=== PATIENT | female | born 1980 | race Caucasian/White ===

== ENCOUNTER 2025-08-24 21:41 | Day surgery (SDC) | payer OTHER, SELFPAY ==
[2025-08-24 21:46] VITALS: BP 129/84; PULSE 102; RESP 18; TEMP 37.6; O2SAT 96; BMI 22.6
--- NOTE | 2025-08-24 22:03 | ED_ITS ---
HPI - Fever General Time Seen by Provider: 22:03 Date Seen: 08/24/25 Chief Complaint: Cough Stated Complaint: respiratory virus, fever, abdominal pain Time Seen by Provider: 08/24/25 22:03 Source: patient and family Mode of arrival: ambulatory History of Present Illness HPI Narrative: Veronika is a 44-year-old female with no significant past medical history who presents to the emergency department from home with her for evaluation of fever, cough, and abdominal pain. Patient reports that she has been sick with a upper respiratory infection/cold since last Saturday. Patient reports worsening symptoms with worsening dry cough and [facility]. Patient states that they prescribed her cough medication (Tessalon Perles) and an inhaler. Patient reports no improvement of symptoms and was told to come to the emergency department if develops fever. Patient states that this afternoon around 2:00 p.m. after eating lunch she developed some acid reflux [place] [facility] [place] [facility] with some abdominal pain. Patient reports worsening cough throughout the day, generally feeling unwell, as well as a constant pain in her right lower abdomen that is been worsening throughout the evening. Patient did not eat dinner. Denies any nausea, vomiting, dysuria. No history of prior abdominal surgeries. No medications prior to arrival. No other complaints. Related Data Home Medications ?Medication ?Instructions ?Recorded ?Confirmed benzonatate PO 08/24/25 Allergies Allergy/AdvReac Type Severity Reaction Status Date / Time Penicillins Allergy Verified 08/24/25 21:51 spinach AdvReac Verified 08/24/25 21:51 Review of Systems Narrative Past medical history, past surgical history, medications, allergies, family history, and social history were reviewed with the patient. No additional pertinent items. A medically appropriate review of systems was performed with pertinent positives and negatives noted in HPI, all other systems negative. PFSH PFSH Social History What is your current living situation?: I presently have a place to live Problems where you live: no known problems Problems where you live details: n/a In the past 12 months, utilities in danger of being shut off: no In past 12 months, lack of transportation kept you from medical appts, meetings, work, or getting things needed for daily living: no In the past 12 mos, have been you worried that your food would run out before you had money to buy more?: never true In the past 12 mos, the food you bought just didn't last and you didn't have money to buy more?: never true Smoking Status: Never smoker Do you use any of these nicotine containing products: None Second hand tobacco smoke exposure: No How often do you have a drink containing alcohol: 2-3 times a week How many standard drinks containing alcohol do you have on a typical day: 1 or 2 How often do you have six or more drinks on one occasion: Never AUDIT-C Alcohol total score: 3 Non-prescribed substance use: denies use How often does anyone, including family, friends and others, physically hurt you : never How often does anyone, including family, friends and others, insult or talk down to you: never How often does anyone, including family, friends and others, threaten you with harm: never How often does anyone, including family, friends and others, scream or curse at you: never service: No Exam Narrative Exam Narrative: General: Febrile 99.7, in distress HEENT: Normocephalic, atraumatic, conjunctiva normal. Posterior pharynx with mild erythema, no exudates, no significant swelling, no asymmetry, MMM Neck: non-tender, supple Cardio: regular rate. regular rhythm Resp: Normal work of breathing, no respiratory distress, lungs clear bilaterally, no wheezing, rhonchi, rales Chest/Back: no visual signs of trauma, no midline tenderness, no CVA tenderness Abdomen: soft, non distension, +TTP RLQ with no peritoneal signs Neuro: alert and fully oriented. CN II-XII grossly intact. Grossly normal strength and sensation in all extremities. MSK: no deformities. Normal range of motion Integumentary/Skin: no rash visualized, normal color Psych: normal affect, normal behavior Const Vital Signs, click to edit/add: Vital Signs - 24 hr 08/24/25 21:46 08/25/25 00:24 Temperature 99.7 F H 98.8 F Pulse Rate [Pulse Oximeter] 102 H 83 Respiratory Rate 18 18 Blood Pressure [Right Upper Arm] 129/84 126/78 Pulse Oximetry 96 95 Oxygen Delivery Method Room Air Room Air Course Vital Signs Vital signs: Initial Vital Signs Temperature 99.7 F H 08/24/25 21:46 Temperature Source Temporal Artery Scan 08/24/25 21:46 Pulse Rate 102 H 08/24/25 21:46 Respiratory Rate 18 08/24/25 21:46 Blood Pressure 129/84 08/24/25 21:46 Blood Pressure Mean 99 08/24/25 21:46 Blood Pressure Position Sitting 08/24/25 21:46 Pulse Oximetry 96 08/24/25 21:46 Oxygen Delivery Method Room Air 08/24/25 21:46 Vital Signs Temperature 99.7 F H 08/24/25 21:46 Pulse Rate 102 H 08/24/25 21:46 Respiratory Rate 18 08/24/25 21:46 Blood Pressure 129/84 08/24/25 21:46 Pulse Oximetry 96 08/24/25 21:46 Oxygen Delivery Method Room Air 08/24/25 21:46 Temperature 98.9 F 08/25/25 01:52 Pulse Rate 79 08/25/25 01:52 Respiratory Rate 17 08/25/25 01:52 Blood Pressure 112/72 08/25/25 01:52 Pulse Oximetry 98 08/25/25 01:52 Oxygen Delivery Method Room Air 08/25/25 01:52 Medications Administered Medications: Generic Name Dose Route Start Last Admin Trade Name Freq PRN Reason Stop Dose Admin Guaifenesin/Codeine Phosphate 5 ml 08/25/25 00:45 08/25/25 01:11 Codeine/Guaifenesin 20-200mg/10 Ml Soln PO 5 ml Q4H PRN Administration cough Discontinued Medications Generic Name Dose Route Start Last Admin Trade Name Freq PRN Reason Stop Dose Admin Sodium Chloride 1,000 mls @ 1,000 mls/hr 08/24/25 23:00 08/25/25 00:16 0.9 % Sodium Chloride 1000 Ml IV 08/24/25 23:59 Infused .Q1H ISAI Infusion Ketorolac Tromethamine 15 mg 08/24/25 22:59 08/24/25 23:30 Ketorolac 15 Mg/Ml Inj IVP 08/24/25 23:00 15 mg ONCE ONE Administration Metoclopramide HCl 5 mg 08/24/25 22:59 08/24/25 23:32 Metoclopramide Hcl 5 Mg/Ml Inj IVP 08/24/25 23:00 5 mg ONCE ONE Administration MDM - Fever MDM Narrative Medical decision making narrative: Veronika is a 44-year-old female with no significant past medical history who presents to the emergency department from home with her for evaluation of fever, cough, and abdominal pain. Upon arrival patient is nontoxic appearing, febrile 99.7, in distress. Patient is slightly tachycardic with heart rate 102, blood pressure 129/84, oxygen 96% on room air. Differential diagnosis includes but is not limited to upper respiratory infection versus COVID/influenza/RSV versus strep versus bronchitis versus pneumonia versus pleurisy versus cholecystitis versus acid reflux versus appendicitis versus cystitis versus among others. Upon arrival patient was treated with IV Reglan, Toradol, 1 L IV fluid bolus. Comprehensive labs and viral testing performed. Comprehensive labs remarkable for leukocytosis with white blood cell count of 15.7, neutrophils 75%, no acute metabolic electrolyte abnormality, no transaminitis, normal lipase, negative test, urinalysis with slightly cloudy appearance, trace blood, no evidence of acute infection. Viral testing negative for influenza/COVID/RSV. Negative strep. Given patient's fever, cough, worsening abdominal pain chest x-ray and CT imaging performed. I personally reviewed and interpreted CT of the abdomen and pelvis which demonstrates acute appendicitis with dilated appendix. I personally reviewed interpreted chest x-ray which is unremarkable with no cardiomegaly, no focal infiltrate, pleural effusion, pneumothorax. I discussed patient management with general surgeon Dr. Gupta who recommends surgical management 1st thing in the morning. Will keep patient NPO, maintenance IV fluids, plan to hold off on antibiotics until surgery. I discussed patient management with hospitalist who agrees with observation admission for surgical intervention in the morning. Patient understands and agrees with plan. Medical Records Attestation: I reviewed the patient's medical records. Lab Data Attestation: I reviewed the patient's lab results. Labs: Lab Results 08/24/25 08/24/25 08/24/25 Range/Units 21:53 22:05 22:14 WBC 15.70 H (4.50-11.00) K/uL RBC 4.50 (4.00-5.20) m/uL Hgb 14.0 (12.0-16.0) gm/dL Hct 42.4 (33.0-51.0) % MCV 94 (80-100) fL MCH 31 (26-34) pg MCHC 33 (32-36) gm/dL RDW Coeff of Sami 11.7 (11.5-15.5) % Plt Count 267 (140-440) K/uL Neut % (Auto) 75.0 H (42.0-72.0) % Lymph % (Auto) 14.8 L (20-44) % [place] % (Auto) 8.4 (0.0-11.0) % Eos % (Auto) 1.4 (0.0-7.0) % Baso % (Auto) 0.2 (0.0-3.0) % Neut # (Auto) 11.80 H (1.7-7.0) K/uL Lymph # (Auto) 2.30 (0.90-2.90) K/uL [place] # (Auto) 1.30 H (0.00-0.90) K/UL Eos # (Auto) 0.20 (0.00-0.50) K/uL Baso # (Auto) 0.00 (0.00-0.30) K/uL Abs Immat Gran (auto) 0.00 (0.00-0.30) K/uL Imm/Tot Granulo (auto) 0.2 % Sodium 137 (135-149) mmol/L Potassium 3.8 (3.6-5.1) mmol/L Chloride 95 L (96-114) mmol/L Carbon Dioxide 29 (20-32) mmol/L Anion Gap 13 (7-15) mEq/L BUN 6 (5-24) mg/dL Creatinine 0.7 (0.5-1.5) mg/dL Estimated Creat Clear 99.73 Estimated GFR 109 ml/min Glucose 122 H (60-115) mg/dL Calcium 10.0 (8.4-10.6) mg/dL Total Bilirubin 0.4 (0.1-1.5) mg/dL AST 29 (12-35) U/L ALT 19 (4-35) U/L Alkaline Phosphatase 66 (40-150) U/L Total Protein 8.2 (6.0-8.3) g/dL Albumin 4.8 (3.3-5.0) g/dL Lipase 43 (23-300) U/L HCG, Qual Negative (Negative) Urine Color Yellow (Yellow) Urine Appearance Slightly Cloudy A (Clear) Urine pH 6.0 (5.0-8.5) Ur Specific [place] 1.015 (1.000-1.030) Urine Protein Negative (Negative) Urine Glucose (UA) Negative (Negative) Urine Ketones Negative (Negative) Urine Blood Trace-intact A (Negative) Urine Nitrite Negative (Negative) Urine Bilirubin Negative (Negative) Urine Urobilinogen 0.2 (0.2-1.0) Ur Leukocyte Esterase Negative (Negative) Urine RBC 0-2 (0-2) Urine WBC 0-2 (0-5) Ur Squamous Epith Cells Few (None-Few) Urine Bacteria Moderate A (None) SARS-CoV-2 (PCR) Negative SARS-CoV-2 (Negative) Influenza Type A (PCR) Negative PCR FLU A (Negative) Influenza Type B (PCR) Negative PCR FLU B (Negative) RSV (PCR) Negative PCR RSV (Negative) Group A Strep DNA NOT DETECTED (Not Detectd) Imaging Data CT scan - abdomen: Attestation: I have reviewed the pertinent imaging results. Radiologist's impression: INDICATION: Right lower quadrant abdominal pain, fever. TECHNIQUE: CT abdomen and pelvis acquired with 70 cc Isovue 370 IV contrast. COMPARISON: None. FINDINGS: Lower chest: Right lower lobe calcified granuloma. Partially visualized bilateral breast implants. Liver: Low-density lesions in the left hepatic lobe, indeterminate. These could be further characterize with MRI abdomen on an outpatient basis if clinically warranted. Few calcified granulomas. Gallbladder and bile ducts: Unremarkable. No stones or inflammation. No biliary ductal dilatation. Spleen: Normal in size. Few calcified granulomas. Adrenal glands: Unremarkable. No nodules. Pancreas: Unremarkable. No mass or inflammation. Kidneys: Subcentimeter hypodense foci are too small to accurately characterize. No stones or hydronephrosis. GI tract: Dilated appendix measuring 8 mm with wall hyperenhancement. Minimal adjacent fat stranding. GI tract is normal in caliber. No evidence of obstruction. Lymph nodes: No lymphadenopathy. Vasculature: Unremarkable. Omentum/Peritoneum/Abdominal Wall: Unremarkable. No free air or significant free fluid. Pelvis: Left adnexal corpus luteum. IUD in place. Bones: Unremarkable for age. IMPRESSION: Acute appendicitis. Please note that all CT scans at this facility use dose modulation, iterative reconstruction, and/or weight-based dosing when appropriate to reduce radiation dose to as low as reasonably achievable. Chest x-ray: Attestation: I have reviewed the pertinent imaging results. Radiologist's impression: INDICATION: Cough and fever. TECHNIQUE: Chest 2 views. COMPARISON: None. FINDINGS: Cardiovascular and mediastinum: Cardiomediastinal silhouette is within normal limits. Lungs and pleural spaces: Right lower lobe calcified granuloma. No consolidation. No pleural effusions or pneumothorax. Bones and soft tissues: No significant findings. IMPRESSION: No evidence of acute pulmonary process. Dictated by Brennan Burroughs MD @ 08/24/2025 11:45:17 PM Discharge Plan Discharge Clinical Impression: Acute appendicitis, Cough Patient Disposition: Admitted As Observation
[2025-08-24 22:17] LABS: Appearance Urine Slightly Cloudy (Clear)
[2025-08-24 22:20] LABS: Hematocrit* 42.4 % (33.0-51.0); Hemoglobin* 14.0 gm/dL (12.0-16.0); Immature Granulocytes Abs Auto 0.00 K/uL (0.00-0.30); Immature Granulocytes Pct Auto 0.2 %; Lymphocytes Absolute Auto 2.30 K/uL (0.90-2.90); Mean Corpuscular HGB Conc 33 gm/dL (32-36); Mean Corpuscular Hemoglobin 31 pg (26-34); Mean Corpuscular Volume 94 fL (80-100); RDW Coefficient of Variation % 11.7 % (11.5-15.5); Red Blood Count* 4.50 m/uL (4.00-5.20); Slide Review Reflex No; White Blood Count* 15.70 K/uL (4.50-11.00)
[2025-08-24 22:31] LABS: Albumin* 4.8 g/dL (3.3-5.0); Chloride* 95 mmol/L (96-114)
[2025-08-24 22:32] LABS: Potassium* 3.8 mmol/L (3.6-5.1); Sodium* 137 mmol/L (135-149)
[2025-08-24 22:34] LABS: Alanine Aminotransferase* 19 U/L (4-35); Aspartate Amino Transferase* 29 U/L (12-35); Blood Urea Nitrogen* 6 mg/dL (5-24); Creatinine* 0.7 mg/dL (0.5-1.5); Est. Creatinine Clearance* 99.73; Estimated Glomerular Filt Rate 109 ml/min
[2025-08-24 22:35] LABS: Alkaline Phosphatase* 66 U/L (40-150); Anion Gap 13 mEq/L (7-15); Bilirubin Total* 0.4 mg/dL (0.1-1.5); Calcium* 10.0 mg/dL (8.4-10.6); Carbon Dioxide* 29 mmol/L (20-32); Glucose* 122 mg/dL (60-115); Total Protein* 8.2 g/dL (6.0-8.3)
[2025-08-24 22:38] LABS: PCR FLU A Negative PCR FLU A (Negative); PCR FLU B Negative PCR FLU B (Negative); PCR RSV Negative PCR RSV (Negative); SARS PCR* Negative SARS-CoV-2 (Negative)
[2025-08-24 22:42] LABS: Strep A DNA Probe* NOT DETECTED (Not Detectd)
[2025-08-24 22:52] LABS: HCG Qualitative Serum* Negative (Negative)
--- NOTE | 2025-08-24 22:59 | CRLHL7_ITS ---
For Patients: As a result of the Cures Act, medical imaging exams and procedure reports are released immediately into your electronic medical record. You may view this report before your referring provider. If you have questions, please contact your health care provider. INDICATION: Cough and fever. TECHNIQUE: Chest 2 views. COMPARISON: None. FINDINGS: Cardiovascular and mediastinum: Cardiomediastinal silhouette is within normal limits. Lungs and pleural spaces: Right lower lobe calcified granuloma. No consolidation. No pleural effusions or pneumothorax. Bones and soft tissues: No significant findings. IMPRESSION: No evidence of acute pulmonary process. Dictated by Brennan Burroughs MD @ 08/24/2025 11:45:17 PM (Electronically Signed)
--- NOTE | 2025-08-24 22:59 | CRLHL7_ITS ---
For Patients: As a result of the Century Cures Act, medical imaging exams and procedure reports are released immediately into your electronic medical record. You may view this report before your referring provider. If you have questions, please contact your health care provider. INDICATION: Right lower quadrant abdominal pain, fever. TECHNIQUE: CT abdomen and pelvis acquired with 70 cc Isovue 370 IV contrast. COMPARISON: None. FINDINGS: Lower chest: Right lower lobe calcified granuloma. Partially visualized bilateral breast implants. Liver: Low-density lesions in the left hepatic lobe, indeterminate. These could be further characterize with MRI abdomen on an outpatient basis if clinically warranted. Few calcified granulomas. Gallbladder and bile ducts: Unremarkable. No stones or inflammation. No biliary ductal dilatation. Spleen: Normal in size. Few calcified granulomas. Adrenal glands: Unremarkable. No nodules. Pancreas: Unremarkable. No mass or inflammation. Kidneys: Subcentimeter hypodense foci are too small to accurately characterize. No stones or hydronephrosis. GI tract: Dilated appendix measuring 8 mm with wall hyperenhancement. Minimal adjacent fat stranding. GI tract is normal in caliber. No evidence of obstruction. Lymph nodes: No lymphadenopathy. Vasculature: Unremarkable. Omentum/Peritoneum/Abdominal Wall: Unremarkable. No free air or significant free fluid. Pelvis: Left adnexal corpus luteum. IUD in place. Bones: Unremarkable for age. IMPRESSION: Acute appendicitis. Please note that all CT scans at this facility use dose modulation, iterative reconstruction, and/or weight-based dosing when appropriate to reduce radiation dose to as low as reasonably achievable. Dictated by Brennan Burroughs MD @ 08/24/2025 11:50:11 PM (Electronically Signed)
[2025-08-24] MEDS: METOCLOPRAMIDE HCL 5 MG/ML INJ IVP (23:32)
[2025-08-25] VITALS (19 sets, daily range): BP systolic 96–126; BP diastolic 54–78; PULSE 59–99; RESP 13–18; TEMP 36.4–37.2; O2SAT 93–99; BMI 22.6
[2025-08-25] MEDS: CODEINE/GUAIFENESIN 20-200MG/10 ML SOLN 5 ML PO (01:11)
--- NOTE | 2025-08-25 01:17 | W.PM.TELEH&P ---
Telehealth- H&P: HPI History of Present Illness Date Seen: 08/25/25 Chief complaint: respiratory virus, fever, abdominal pain Narrative: Veronika Anton is seen as an Interactive Telehealth visit. Veronika Anton is a 44 year old female h/o hypercholesterolemia presents with upper respiratory infection and found to have appendicitis. Patient developed coughing, stuffy ears on Saturday of last week or 7 days prior to admission. In addition, she felt winded and had [place] stools. She denies sore throat, chest pain, wheezing, nausea, vomiting, diarrhea, constipation, melena, hematochezia. Three days later, patient lost her voice. Due to her dry cough, she had difficulty sleeping. She went to the urgent care on Saturday or one day prior to admission. She was prescribed an inhaler and Tessalon Perles. she had no improvement. She was instructed to go to the ED if fever developed. Earlier today patient came home from work. She ate some soup. Soon afterwards she developed burning sensation in her chest and had more coughing. OVer time her abdomen (area just right of umbilicus and lower abdomen) became painful. She developed chills around 7-730p. Her temperature was 99.4. One hour later her temperature was 99.9. She decided to go to the ED. Workup found leukocytosis and acute appendicitis. Surgery will perform appendectomy around 630am. They will give antibiotics closer to surgery. Past medical history hypercholesterolemia controlled by lifestyle modifications allergies PCN Medications none social history Alcohol 1-2 drinks approximately 1-2 times per will No tobacco use No recreational drug use family history children alive and well Review of Systems Status of ROS: Reports: 10 or more systems reviewed and unremarkable except as noted in History and below [facility] Social History What is your current living situation?: I presently have a place to live Problems where you live: no known problems Problems where you live details: n/a In the past 12 months, utilities in danger of being shut off: no In past 12 months, lack of transportation kept you from medical appts, meetings, work, or getting things needed for daily living: no In the past 12 mos, have been you worried that your food would run out before you had money to buy more?: never true In the past 12 mos, the food you bought just didn't last and you didn't have money to buy more?: never true Smoking Status: Never smoker Do you use any of these nicotine containing products: None Second hand tobacco smoke exposure: No How often do you have a drink containing alcohol: 2-3 times a week How many standard drinks containing alcohol do you have on a typical day: 1 or 2 How often do you have six or more drinks on one occasion: Never AUDIT-C Alcohol total score: 3 Non-prescribed substance use: denies use How often does anyone, including family, friends and others, physically hurt you: never How often does anyone, including family, friends and others, insult or talk down to you: never How often does anyone, including family, friends and others, threaten you with harm: never How often does anyone, including family, friends and others, scream or curse at you: never service: No Meds Home Medications and Allergies Home Medications ?Medication ?Instructions ?Recorded ?Confirmed ?Type benzonatate PO 08/24/25 History Allergies Allergy/AdvReac Type Severity Reaction Status Date / Time Penicillins Allergy Verified 08/24/25 21:51 spinach AdvReac Verified 08/24/25 21:51 Exam Narrative Exam Narrative: Physical Exam GENERAL: ?vital signs reviewed, well developed and nourished, in no distress HEENT: pupils are equal round and reactive to light, extraocular movements are grossly within normal limits and oral mucosa is moist. NECK: Supple with lymphadenopathy; one LAD on left anterior cervical chain nontender according to nursing staff examination observation HEART: Regular rate and rhythm without any rubs, murmurs, or gallops. LUNGS: Clear to auscultation bilaterally with good air movement throughout; sparse crackles in bilateral bases ABDOMEN: Observation from nurse assisted exam, abdomen appears soft,and nondistended with Positive bowel sounds noted. EXTREMITIES: Strength and sensation is observed to be grossly within normal limits in the upper and lower extremities.? No focal strength deficit is observed. SKIN:? Observed warm and dry with color normal Const Vital Signs, click to edit/add: Vital Signs - 24 hr 08/24/25 21:46 08/25/25 00:24 Temperature 99.7 F H 98.8 F Pulse Rate [Pulse Oximeter] 102 H 83 Respiratory Rate 18 18 Blood Pressure [Right Upper Arm] 129/84 126/78 Pulse Oximetry 96 95 Oxygen Delivery Method Room Air Room Air Hospitalist - H&P: Result Labs Labs: Short CBC 08/24/25 Range/Units 22:14 WBC 15.70 H (4.50-11.00) K/uL Hgb 14.0 (12.0-16.0) gm/dL Hct 42.4 (33.0-51.0) % Plt Count 267 (140-440) K/uL BMP 08/24/25 22:14 Sodium 137 Potassium 3.8 Chloride 95 L Carbon Dioxide 29 BUN 6 Creatinine 0.7 Glucose 122 H Calcium 10.0 Liver Function 08/24/25 Range/Units 22:14 Total Bilirubin 0.4 (0.1-1.5) mg/dL AST 29 (12-35) U/L ALT 19 (4-35) U/L Alkaline Phosphatase 66 (40-150) U/L Albumin 4.8 (3.3-5.0) g/dL Urine 08/24/25 Range/Units 22:05 Urine Color Yellow (Yellow) Urine Appearance Slightly Cloudy A (Clear) Urine pH 6.0 (5.0-8.5) Ur Specific [place] 1.015 (1.000-1.030) Urine Protein Negative (Negative) Urine Glucose (UA) Negative (Negative) Imaging CT scan - abdomen: Radiologist's impression: FINDINGS: Lower chest: Right lower lobe calcified granuloma. Partially visualized bilateral breast implants. Liver: Low-density lesions in the left hepatic lobe, indeterminate. These could be further characterize with MRI abdomen on an outpatient basis if clinically warranted. Few calcified granulomas. Gallbladder and bile ducts: Unremarkable. No stones or inflammation. No biliary ductal dilatation. Spleen: Normal in size. Few calcified granulomas. Adrenal glands: Unremarkable. No nodules. Pancreas: Unremarkable. No mass or inflammation. Kidneys: Subcentimeter hypodense foci are too small to accurately characterize. No stones or hydronephrosis. GI tract: Dilated appendix measuring 8 mm with wall hyperenhancement. Minimal adjacent fat stranding. GI tract is normal in caliber. No evidence of obstruction. Lymph nodes: No lymphadenopathy. Vasculature: Unremarkable. Omentum/Peritoneum/Abdominal Wall: Unremarkable. No free air or significant free fluid. Pelvis: Left adnexal corpus luteum. IUD in place. Bones: Unremarkable for age. Chest x-ray: Radiologist's impression: FINDINGS: Cardiovascular and mediastinum: Cardiomediastinal silhouette is within normal limits. Lungs and pleural spaces: Right lower lobe calcified granuloma. No consolidation. No pleural effusions or pneumothorax. Bones and soft tissues: No significant findings. IMPRESSION: No evidence of acute pulmonary process Assessment and Plan Assessment and plan (1) Cough: Status: Acute (2) Acute appendicitis: Status: Acute (3) Viral URI with cough: Status: Acute Plan 44y/o F h/o hypercholesterolemia presents with both viral URI and appendicits. Both likely account for leukocytosis an dmalaise. Abdominal pain is likely due to appendicitis. Acute appendicitis: General Surgery is aware and will perform appendectomy later today PEr discussion with ED, surgery will give perioperative antibiotics later tonight --administer IVF --hold off on abx --pain control Viral URI now feeling headache --administer tylenol --administer IVF --flonase --prn albuterol Full code per discussion DVT prophy: no meds; administer SCD Telehealth: Statement Statement Telehealth Visit: Today's History and Physical is provided via interactive telehealth by Zahida Perkins MD.? Patient is located at [facility].? Provider is located at [employer] [facility].? Nursing staff assisted with the patient's exam. The visit being done today meets criteria for a telehealth visit and the patient or patient?s parent/guardian is aware the visit is a telehealth visit.
[2025-08-25] MEDS: PANTOPRAZOLE SODIUM 40 MG INJ IVP (02:50)
[2025-08-25] MEDS: 5 % DEXTROSE/0.45% SOD CHLOR 1,000 ML 75 ML IV (02:52)
[2025-08-25] MEDS: ACETAMINOPHEN INJ 1,000 MG/100 ML VIAL 400 MG IVPB (02:53)
--- NOTE | 2025-08-25 05:57 | P.GSCN_ITS ---
History of Present Illness Consult details Date Seen: 08/25/25 Consult date: 08/25/25 Narrative: 44-year-old female presented to emergency room with right lower quadrant abdominal pain and fever of 99 and I was asked by Dr. Emmanuelle Piper to see her in consultation. Patient states that her pain started yesterday during the day. It was in the right lower quadrant and was gradually increasing. The pain is not unchanged today. It is described as dull. Patient was passing gas and had a bowel movement yesterday. She describes the pain as worse with movement, standing up, and coughing. Patient developed a cough starting last week. She is not coughing anything up but the cough is persistent. [facility] and was recommended to seek medical attention when she had a fever. Yesterday her temperature was 99.9? and she decided to come to the emergency room. Patient is a has some shortness of breath over the weekend. I personally reviewed patient's workup in the emergency room. She was found to have elevated WBC of 15. Her liver function tests and BMP were normal. An abdominal CT was obtained that showed dilated appendix with wall enhancement with mild periappendiceal inflammation. There is no evidence of an abscess. No dilated small large intestine. Patient had influenza, RSV, strep, and COVID negative. Patient's chest x-ray is clear with no evidence of pneumonia. Review of Systems Narrative: General: no fevers HENT: no problems swallowing CV: no shortness of breath Resp: no cough GI: No nausea, vomiting, abdominal pain : no dysuria, no increased urinary frequency, no hematuria Skin: no new rashes Musculoskeletal: no back pain Neuro: no muscle weakness Psyche: no depression, no anxiety PFSH PFSH Surgical History (Updated 08/25/25 @ 06:02 by Jose Antonio Gupta MD) S/P tonsillectomy ?Z90.89 - Acquired absence of other organs (ICD-10) H/O foot surgery ?Z98.890 - Other specified postprocedural states (ICD-10) Hx of breast augmentation ?Z98.82 - Breast implant status (ICD-10) Social History (Updated 08/25/25 @ 06:02 by Jose Antonio Gupta MD) Narrative: Patient denies smoking, 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 What is your current living situation?: I presently have a place to live Problems where you live: no known problems Problems where you live details: n/a In the past 12 months, utilities in danger of being shut off: no In past 12 months, lack of transportation kept you from medical appts, meetings, work, or getting things needed for daily living: no In the past 12 mos, have been you worried that your food would run out before you had money to buy more?: never true In the past 12 mos, the food you bought just didn't last and you didn't have money to buy more?: never true Smoking Status: Never smoker Do you use any of these nicotine containing products: None Second hand tobacco smoke exposure: No How often do you have a drink containing alcohol: 2-3 times a week How many standard drinks containing alcohol do you have on a typical day: 1 or 2 How often do you have six or more drinks on one occasion: Never AUDIT-C Alcohol total score: 3 Non-prescribed substance use: denies use How often does anyone, including family, friends and others, physically hurt you : never How often does anyone, including family, friends and others, insult or talk down to you: never How often does anyone, including family, friends and others, threaten you with harm: never How often does anyone, including family, friends and others, scream or curse at you: never service: No Meds Home Medications and Allergies Home Medications ?Medication ?Instructions ?Recorded ?Confirmed ?Type benzonatate PO 08/24/25 History azithromycin 250 mg tablet See Rx Instructions PO .COM PLEX #6 08/25/25 Rx tabs hydrocodone 5 mg-acetaminophen 325 1 tab PO Q6H PRN pa in #18 tabs 08/25/25 Rx mg tablet Allergies Allergy/AdvReac Type Severity Reaction Status Date / Time Penicillins Allergy Verified 08/24/25 21:51 spinach AdvReac Verified 08/24/25 21:51 Exam Narrative: Exam Narrative: General appearance: Alert, cooperative, and in no distress Pulmonary: Chest symmetric, lungs clear bilaterally Cardiovascular Heart: Regular rate and rhythm, S1, S2, no murmurs/rubs/gallops Gastrointestinal Abdominal: soft, not distended, tender to palpation in the right lower quadrant with rebound tenderness, no tenderness anywhere else. Skin: Normal skin color, texture, and turgor. No rashes or lesions. Psychiatric: Alert, cooperative, normal affect. Const: Vital Signs, click to edit/add: Vital Signs - 24 hr 08/24/25 21:46 08/25/25 00:24 08/25/25 01:52 Temperature 99.7 F H 98.8 F 98.9 F Pulse Rate [Pulse Oximeter] 102 H 83 79 Respiratory Rate 18 18 17 Blood Pressure [Le ft Arm] 112/72 Blood Pressure [Ri ght Upper Arm] 129/84 126/78 Pulse Oximetry 96 95 98 Oxygen Delivery Me thod Room Air Room Air Room Air 08/25/25 01:52 08/25/25 05:08 Temperature 98.2 F Pulse Rate [Pulse Oximeter] 78 Respiratory Rate 17 18 Blood Pressure [Le ft Arm] 103/66 Blood Pressure [Ri ght Upper Arm] Pulse Oximetry 98 96 Oxygen Delivery Me thod Room Air Room Air Results Labs Labs: Abnormal lab results 08/24/25 08/24/25 Range/Units 22:05 22:14 WBC 15.70 H (4.50-11.00) K/uL Neut % (Auto) 75.0 H (42.0-72.0) % Lymph % (Auto) 14.8 L (20-44) % Neut # (Auto) 11.80 H (1.7-7.0) K/uL [place] # (Auto) 1.30 H (0.00-0.90) K/UL Chloride 95 L (96-114) mmol/L Glucose 122 H (60-115) mg/dL Urine Appearance Slightly Cloudy A (Clear) Urine Blood Trace-intact A (Negative) Urine Bacteria Moderate A (None) Diabetes panel 08/24/25 Range/Units 22:14 Sodium 137 (135-149) mmol/L Potassium 3.8 (3.6-5.1) mmol/L Chloride 95 L (96-114) mmol/L Carbon Dioxide 29 (20-32) mmol/L BUN 6 (5-24) mg/dL Creatinine 0.7 (0.5-1.5) mg/dL Glucose 122 H (60-115) mg/dL Calcium 10.0 (8.4-10.6) mg/dL AST 29 (12-35) U/L ALT 19 (4-35) U/L Alkaline Phosphatase 66 (40-150) U/L Total Protein 8.2 (6.0-8.3) g/dL Albumin 4.8 (3.3-5.0) g/dL Calcium panel 08/24/25 Range/Units 22:14 Calcium 10.0 (8.4-10.6) mg/dL Albumin 4.8 (3.3-5.0) g/dL Pituitary panel 08/24/25 Range/Units 22:14 Sodium 137 (135-149) mmol/L Potassium 3.8 (3.6-5.1) mmol/L Chloride 95 L (96-114) mmol/L Carbon Dioxide 29 (20-32) mmol/L BUN 6 (5-24) mg/dL Creatinine 0.7 (0.5-1.5) mg/dL Glucose 122 H (60-115) mg/dL Calcium 10.0 (8.4-10.6) mg/dL Adrenal panel 08/24/25 Range/Units 22:14 Sodium 137 (135-149) mmol/L Potassium 3.8 (3.6-5.1) mmol/L Chloride 95 L (96-114) mmol/L Carbon Dioxide 29 (20-32) mmol/L BUN 6 (5-24) mg/dL Creatinine 0.7 (0.5-1.5) mg/dL Glucose 122 H (60-115) mg/dL Calcium 10.0 (8.4-10.6) mg/dL Total Bilirubin 0.4 (0.1-1.5) mg/dL AST 29 (12-35) U/L ALT 19 (4-35) U/L Alkaline Phosphatase 66 (40-150) U/L Total Protein 8.2 (6.0-8.3) g/dL Albumin 4.8 (3.3-5.0) g/dL All other labs normal. Progress Note:A&P Assessment and plan (1) Acute appendicitis: Status: Acute (2) Viral URI with cough: Status: Acute Plan 44-year-old female presents with acute appendicitis and viral upper respiratory infection. I discussed with the patient her laboratory and imaging findings. Her WBC is elevated 15. Her abdominal CT shows dilated wall enhancing appendix with mild periappendiceal inflammation. There is no evidence of an abscess. I discussed with the patient that I would recommend proceeding with laparoscopic appendectomy. The procedure was discussed in detail. The risks associated procedure including infection, bleeding, injury to intra-abdominal organs, and worsening of her upper respiratory symptoms were all discussed with the patient, she agreed to proceed. Patient's chest x-ray is clear, and her lungs are clear to auscultation so I think it is safe to proceed with general anesthesia. I will plan on treating this patient with Z-Itz postoperatively.
[2025-08-25] MEDS: LACTATED RINGERS 1000 ML 1,000 ML 125 ML IV (06:35)
[2025-08-25] MEDS: metroNIDAZOLE 500 MG/100 ML for IV IVPB (06:40)
[2025-08-25] MEDS: BUPIVACAINE 0.25% 30 ML 10 ML INJECTION (06:51)
--- NOTE | 2025-08-25 06:53 | PC.NURSE ---
Shift note ([id number]): Patient admitted from ED at?0140. Pt?pleasant,?alert?and?oriented.?Given Tylenol IVPB for c/o headache?rated 10?on admission.?No c/o abdominal pain.?OR staff?transported?patient?from med/surg to surgery?department at?0630?via?room?bed.?
--- NOTE | 2025-08-25 06:56 | SUR.OPER ---
PATIENT QUESTIONS ANSWERED SATISFACTORILY PREOPERATIVELY BY MARY PITTS RN. PATIENT BROUGHT TO OR #1 PER MED/SURG BED. Patient positioned supine on OR #1 bed. The perioperative team supported arms bilaterally on arm boards. Final approval of positioning by surgeon.
[2025-08-25] MEDS: CIPROFLOXACIN 400 MG/200 ML inj IVPB (07:02)
--- NOTE | 2025-08-25 07:34 | P.GSOP_ITS ---
Operative Note Date of procedure: 08/25/25 Pre-op diagnosis: 1. Acute appendicitis. Post-op diagnosis: 1. Acute appendicitis, not perforated. Type of Procedure: 1. Laparoscopic appendectomy. Indications: 44-year-old female presented to emergency room with right lower quadrant abdominal pain that started yesterday. The pain was persistent. Pain was described as dull and worse with movement or coughing. Patient had cough starting last week. She had a low-grade fever of 99.9 and decided to present to emergency room. In the emergency room her workup showed elevated WBC of 15. An abdominal CT scan showed dilated wall enhancing appendix with no periappendiceal abscess. Patient had a clear chest x-ray with no evidence of pneumonia. Her RSV, influenza, COVID, and strep were negative. On clinical exam patient had clear lungs to auscultation. His abdomen was tender in the right lower quadrant with rebound tenderness, no tenderness anywhere else in the abdomen. Given patient's clinical history and her CT findings, acute appendicitis was suspected, laparoscopic appendectomy was recommended. The procedure was discussed in detail. The risks associated procedure including infection, bleeding, injury to intra-abdominal organs, and worsening of her uppers [place] infection were all discussed with the patient, and she agreed to proceed. Procedure Description: After discussing the risks and benefits of the procedure, the patient signed informed consent.? The operative site was marked and the patient was brought to the operating room and placed on the operating table in supine position.? Care was taken to pad the patient's pressure points.?? The patient was then intubated by anesthesia.?? The operative site was then prepped and draped in the usual sterile fashion.? A time-out was then performed. A 5-mm laparoscopy port was placed in the left upper quadrant guided by a 5-mm laparoscope placed into a translucent trochar. Passage through the layers of the abdominal wall was visualized with the laparoscope. A pneumoperitoneum was established. A 30-degree 5-mm laparoscope was advanced into the abdomen. The abdomen was briefly surveyed, and there was no evidence of diffuse peritonitis. A 12-mm port and a 5-mm port were placed suprapubically, respectively, under d irect visualization by laparoscope. Left upper quadrant entrance port was then examined intraabdominally by placing the camera through the left lower quadrant port. Small liver laceration was seen from the the port entrance. No active bleeding was seen. The liver laceration was only on the anterior surface of the liver and was not through and through. The patient was placed in Trendelenburg position, allowing the abdominal contents to shift cephalad. The small bowel was moved toward the midline in the abdomen and this allowed for identification of the appendix. It appeared to be inflamed, there was no evidence of perforation. The appendix was grasped and dissected from the peritoneum using Harmonic scalpel. Thickened mesentery with suspected appendiceal artery was clipped with 5 mm clips on the patient's side and divided with Harmonic scalpel on the specimen side. A vascular load Endo- FRANCISCO stapler was advanced through the 12-mm port into the abdomen and appendix was stapled off at its base. The appendix was then placed in an endoscopic retrieval bag and extracted from the abdomen through the 12-mm port. The abdomen was surveyed for hemostasis. And no bleeding was seen. No bleeding was seen from the previously noted small liver laceration. The 12-mm port was withdrawn and the fascial defect was closed with a [id number] 0-0 Vicryl stitch. This closure was examined intra-abdominally, and no intra-abdominal organs were incarcerated in the closure. The 5-mm port was removed under direct visualization. The left upper quadrant port was used to evacuate the pneumoperitoneum and then withdrawn. The skin incisions were closed with 4-0 monocryl. Steri-Strips were applied over the incisions. All counts were correct at the end of the case. The patient tolerated this procedure well and was transferred to PACU in stable condition. Findings: Inflamed appendix. Anesthesia: GETA Surgeon: Jose Antonio Gupta MD Estimated blood loss (mL): 5 Specimen: Appendix Condition: stable Disposition: PACU
--- NOTE | 2025-08-25 07:39 | P.ANES_ITS ---
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
--- NOTE | 2025-08-25 07:39 | W.ANESCHARGE ---
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
[2025-08-25] MEDS: ONDANSETRON 2 MG/ML inj 4 MG IVP (08:20)
--- NOTE | 2025-08-25 10:46 | SUR.PHASEII ---
Pt reports dizziness on sitting, and nausea. Pt dry heaved but no vomiting. Zofran was given. Pt report abdominal pain tolerable. Pt report chest tightness and upper shoulder/back pain. Informed pt about gas pains. VSS. on room air. tolerated sips of sprite and water. declines food. Reviewed d/c instructions with and pt. All questions answered. Reviewed use of incentive spirometer- sent home with patient. Wheelchair out to car with and RN.
--- NOTE | 2025-08-25 14:43 | P.DS_ITS ---
DS: Providers Provider Date Seen: 08/25/25 Primary care physician: Not a Local Provider Attending Physician on discharge: Jose Antonio Gupta MD DS: Diagnosis Discharge Diagnosis (1) S/P laparoscopic appendectomy: Status: Acute DS: Summary Hospital Course Hospital Course: Patient was admitted overnight with acute appendicitis. She underwent laparoscopic appendectomy. Patient did well postoperatively. She was discharged home on Z-Itz due to her persistent cough and low-grade fever. Time Spent with Patient Time attestation: Total time spent providing and/or coordinating discharge services: Exam Narrative: Exam Narrative: Abdomen is soft, laparoscopic incisions are covered with Steri-Strips. Const: Vital Signs, click to edit/add: Vital Signs - 24 hr 08/24/25 21:46 08/25/25 00:24 08/25/25 01:52 Temperature 99.7 F H 98.8 F 98.9 F Pulse Rate Pulse Rate [Pulse Oximeter] 102 H 83 79 Respiratory Rate 18 18 17 Blood Pressure Blood Pressure [Le ft Arm] 112/72 Blood Pressure [Ri ght Upper Arm] 129/84 126/78 Pulse Oximetry 96 95 98 Oxygen Delivery Me thod Room Air Room Air Room Air 08/25/25 01:52 08/25/25 05:08 08/25/25 07:35 Temperature 98.2 F 98.1 F Pulse Rate 99 Pulse Rate [Pulse Oximeter] 78 Respiratory Rate 17 18 16 Blood Pressure 107/54 L Blood Pressure [Le ft Arm] 103/66 Blood Pressure [Ri ght Upper Arm] Pulse Oximetry 98 96 96 Oxygen Delivery Me thod Room Air Room Air Room Air 08/25/25 07:40 08/25/25 07:45 08/25/25 07:50 Temperature Pulse Rate 81 68 64 Pulse Rate [Pulse Oximeter] Respiratory Rate 14 13 14 Blood Pressure 104/56 L 101/56 L 102/58 L Blood Pressure [Le ft Arm] Blood Pressure [Ri ght Upper Arm] Pulse Oximetry 93 94 96 Oxygen Delivery Me thod 08/25/25 07:55 08/25/25 08:00 08/25/25 08:05 Temperature 97.7 F 97.6 F Pulse Rate 60 63 65 Pulse Rate [Pulse Oximeter] Respiratory Rate 17 16 16 Blood Pressure 101/60 96/59 L 104/62 Blood Pressure [Le ft Arm] Blood Pressure [Ri ght Upper Arm] Pulse Oximetry 97 96 99 Oxygen Delivery Me thod Room Air 08/25/25 08:15 08/25/25 08:30 08/25/25 08:45 Temperature Pulse Rate 59 L 62 78 Pulse Rate [Pulse Oximeter] Respiratory Rate 16 16 16 Blood Pressure 105/60 105/60 105/60 Blood Pressure [Le ft Arm] Blood Pressure [Ri ght Upper Arm] Pulse Oximetry 98 98 98 Oxygen Delivery Me thod Room Air Room Air Room Air 08/25/25 09:00 08/25/25 09:15 08/25/25 09:30 Temperature Pulse Rate 77 73 77 Pulse Rate [Pulse Oximeter] Respiratory Rate 16 16 16 Blood Pressure 109/66 105/65 108/67 Blood Pressure [Le ft Arm] Blood Pressure [Ri ght Upper Arm] Pulse Oximetry 98 98 98 Oxygen Delivery Me thod Room Air Room Air Room Air 08/25/25 09:45 08/25/25 10:00 08/25/25 10:15 Temperature Pulse Rate 77 98 81 Pulse Rate [Pulse Oximeter] Respiratory Rate 16 16 16 Blood Pressure 110/63 120/76 110/64 Blood Pressure [Le ft Arm] Blood Pressure [Ri ght Upper Arm] Pulse Oximetry 98 98 98 Oxygen Delivery Me thod Room Air Room Air Room Air DS: Data Data Completed and Pending Labs on day of discharge: Labs from last 24 hours 08/24/25 08/24/25 08/24/25 22:14 22:05 21:53 WBC 15.70 H RBC 4.50 Hgb 14.0 Hct 42.4 MCV 94 MCH 31 MCHC 33 RDW Coeff of Sami 11.7 Plt Count 267 Neut % (Auto) 75.0 H Lymph % (Auto) 14.8 L [place] % (Auto) 8.4 Eos % (Auto) 1.4 Baso % (Auto) 0.2 Neut # (Auto) 11.80 H Lymph # (Auto) 2.30 [place] # (Auto) 1.30 H Eos # (Auto) 0.20 Baso # (Auto) 0.00 Abs Immat Gran (auto) 0.00 Imm/Tot Granulo (auto) 0.2 Sodium 137 Potassium 3.8 Chloride 95 L Carbon Dioxide 29 Anion Gap 13 BUN 6 Creatinine 0.7 Estimated Creat Clear 99.73 Estimated GFR 109 Glucose 122 H Calcium 10.0 Total Bilirubin 0.4 AST 29 ALT 19 Alkaline Phosphatase 66 Total Protein 8.2 Albumin 4.8 Lipase 43 HCG, Qual Negative Urine Color Yellow Urine Appearance Slightly Cloudy A Urine pH 6.0 Ur Specific [place] 1.015 Urine Protein Negative Urine Glucose (UA) Negative Urine Ketones Negative Urine Blood Trace-intact A Urine Nitrite Negative Urine Bilirubin Negative Urine Urobilinogen 0.2 Ur Leukocyte Esterase Negative Urine RBC 0-2 Urine WBC 0-2 Ur Squamous Epith Cells Few Urine Bacteria Moderate A SARS-CoV-2 (PCR) Negative SARS-CoV-2 Influenza Type A (PCR) Negative PCR FLU A Influenza Type B (PCR) Negative PCR FLU B RSV (PCR) Negative PCR RSV Group A Strep DNA NOT DETECTED Preliminary micro results at discharge 08/24/25 22:05 Urine Culture - Preliminary Urine,Clean Catch Culture in Progress Discharge Plan Discharge Disposition: Home w/ Parent or Adult Discharging Surgeon: Jose Antonio Gupta Follow-Up Appointment: Sep 08 9:30am with Dr. Gupta [place] Location Prescriptions: New hydrocodone-acetaminophen 5-325 mg tablet 1 tab PO Q6H PRN (Reason: pain) Qty: 18 0RF azithromycin 250 mg tablet See Rx Instructions .ROUTE .COMPLEX Qty: 6 0RF Rx Instructions: For 250 mg dose pack: take 500 mg today (day 1), then 250 mg for 4 days (days 2-5) Continued benzonatate PO Activity Level: No strenuous activity Activity Detail: No strenuous activity or lifting more than 15-20 lbs for 4-6 weeks. Take laxative such as MiraLax daily for the first 7-10 days after surge ry to prevent constipation. Leave Steri-Strips on for the next 7-10 days. Discharge Diet: Regular Patient Instructions: General Anesthesia (DC), NH+C Post-Operative Instructions: Appendectomy Forms: MyHealth Info Instructions Follow-up: Jose Antonio Gupta MD [Staff Physician, General Surgery] - 09/08/25 9:30 am Referral Note: [facility] Provider,Not a Local [Primary Care Provider, Family Practice] Discharge Orders: Discharge Order (Routine); Ordered 08/25/25 Ordered By: Jose Antonio Gupta
== END 2025-08-25 10:46 | disposition home or self-care (01) ==
LOC: ED 08-25 01:20 → MEDSURG 08-25 05:32 → OR 08-25 06:55 → MEDSURG 08-25 06:55 → OR 08-25 06:55
PROVIDERS: Emergency Provider Emergency Medicine; Visit Provider Surgery
PROC: 0DTJ4ZZ Resection of Appendix, Percutaneous Endoscopic Approach (ICD-10-PCS; CPT 44970; principal; 2025-08-25 06:30)
DX: K35.80 Unspecified acute appendicitis (principal); J06.9 Acute upper respiratory infection, unspecified
CPT/HCPCS: 44970; 00840; 36415; 71046; 74177; 80053; 81001; 83690; 84703; 85025; 87086; 87631; 87651; 99285; A9270; G0378; J0131; J0330; J0665; J0744; J1100; J1836; J1885; J2250; J2405; J2470; J2704; J2710; J2765; J3010; J7030; J7120; Q9967; S5010